=== PATIENT | male | born 1960 | race Caucasian/White ===

== ENCOUNTER → 2018-01-12 | Outpatient (CLI) | payer OTHER ==
[2018-01-11 16:12] VITALS: BMI 32.5
[2018-01-12 14:43] VITALS: BP 160/96; PULSE 65; RESP 18
--- NOTE | 2018-01-13 09:17 | P.PAINCN ---
History of Present Illness - Reason for Consult Consult date: 01/12/18 - History of Present Illness This is initial consultation visit for this 57 years old male with a chronic history of severe low back pain, pain started 6 years ago after he fell off the horse, and from that time he started complaining of severe low back pain, the pain is constant, radiated to the right buttock area, the posterior aspect of his right leg, he denies any motor or sensory deficit, and he reported that he had interventional pain management procedures done at different institution and he gets excellent pain relief, and currently his pain management physician retired and is planning to move his care to [facility], patient reported that the intensity of the pain is 6/10 and increases with any activity to 10 over 10, he continued to work , and he does a lot of physical activity, he denies any fever or night sweats. Denies any change in the bowel movement or urination. Past Medical History Past Medical History: Atrial Fibrillation, Asthma, Diabetes Mellitus, Hyperlipidemia, Hypertension, Liver Disease, Musculoskeletal Disorder, Osteoarthritis (OA) Additional Past Medical History / Comment(s): hx. Hep. C-previous tx-currently in remission, low back pain-has gone to pain clinic in [place] prior, past hx. a -fib-not currently, restless leg History of Any Multi-Drug Resistant Organisms: None Reported Past Surgical History: Appendectomy Additional Past Surgical History / Comment(s): pain procedures, varicose vein surgery Past Anesthesia/Blood Transfusion Reactions: No Reported Reaction Past Psychological History: Depression Smoking Status: Former smoker Additional Past Alcohol Use History / Comment(s): quit smoking 10 yrs ago, smoked cigars 5 yrs., recovering alcoholic-hasn't drank in 30 yrs. Past Drug Use History: None Reported - Past Family History Mother Family Medical History: No Reported History Medications and Allergies Home Medications Medication Instructions Recorded Confirmed Type ARIPiprazole [Abilify] 2 mg PO DAILY 01/11/18 01/12/18 History Albiglutide [Tanzeum] 30 mg SQ Q7D 01/11/18 01/12/18 History Albuterol Inhaler [Ventolin Hfa 1 - 2 puff INHALATION RT-Q6H PRN 01/11/18 History Inhaler] Atorvastatin [Lipitor] 40 mg PO DAILY 01/11/18 01/12/18 History FLUoxetine HCL [PROzac] 40 mg PO DAILY 01/11/18 01/12/18 History Glimepiride [Amaryl] 2 mg PO AC-BRKFST 01/11/18 01/12/18 History Losartan Potassium [Cozaar] 100 mg PO DAILY 01/11/18 01/12/18 History Naproxen [Naprosyn] 500 mg PO Q12HR PRN 01/11/18 01/12/18 History Pregabalin [Lyrica] 75 mg PO BID 01/11/18 01/12/18 History metFORMIN HCL 1,000 mg PO DAILY 01/11/18 01/12/18 History rOPINIRole HCL [Requip] 1 mg PO HS 01/11/18 01/12/18 History Allergies Allergy/AdvReac Type Severity Reaction Status Date / Time No Known Allergies Allergy Verified 01/12/18 14:22 Physical Exam Vitals: Vital Signs Pulse Resp BP Pulse Ox 01/12/18 14:25 65 18 160/96 97 Social history : not smoker , NO ETOH , NO Illegal drugs use . Review of Systems : 1- Constitutional : no chills , no fever , no night sweats , 2- Ears : no ear discharge , no change in hearing 3-Nose, Mouth ,Throat ; no bleeding gums, no sore throat , no epistaxis , 4-Cardiovascular : Denies chest pain, , no orthopnea , no palpitation 5-Respiratory : Denies cough , no dyspnea , no hemoptysis 6-Gastrointestinal :, no change in bowel habits , no coffee- ground emesis . 7-Genitourinary : No hematuria , no discharge , no incontinence, 8-Musculoskeletal : No gait dysfunction , report low back pain , 9- Neurological : no ataxia , no tremor , no sezure , 10-Psychatric , no suicidal ideation no hallucination 11- Endocrine : no cold intolerence , no polyuria , no polydypsia , 12-Hematologic : no easy bleeding , no easy brusing , 13-Allergic / immunology : no angioedema , no wheezing ,no allergic rhinitis 14-Integumentary : no brttle nails , no change hair / nails , no foot/leg ulcers . Physical Examinations : 1-Constitutional : Cooperative , not in acute distress . 2-HEENT : nech ; supple , no Lymphadenopathy , no Thyromegaly , :eyes , no icterus, no photophobia . ENT : , normal oropharynx , no Thrush 3- Respiratory : Chest clear to auscultations Bilaterally , no wheezing . 4- Cardiovascular : regular rate and rhythem , S1 , S2 , no S3 , no S4. 5- Gastrointestinal: abdomen soft no tenderness , no organomegally . 6- Genitourinary : Defferred . 7-Integumentary : No cellulitis , no ulcers , normal skin turgor , no cyanotic . 8- neurologic : Cranial nerve II to XII intact , no focal neurological deffecit 9-psychatric : alert , oriented X 3 , appropriate affect , intact judgment and insight . 10-Lymphatic : no Lymphadenopathy. 11- musculoskeltal: normal gait Lumber spine moter stegnth lower extremities ,thigh and legs 5/5 Right side , 5/5 Left side deep tendon reflexes : normal Knee Jerk , normal ankle Jerk lumber facet Loading Test positive only on the right side, negative on the left side Range of motion of the lumbar spine Flexion 30 degrees, extension 10 degrees strait leg raising test , positive at 30 degree on the right side, negative on the left side Fabere test positive RT and negative LT . Results Comments: MRI of the lumbar spine= done at some point MRI 11/28/2017, L4 5/L5-S1 lumbar facet arthropathy Assessment and Plan Plan: Assessment and plan=1-chronic severe low back pain secondary to lumbar spondylosis with lumbar facet arthropathy. Patient could benefit from Lyrica 25 mg twice a day increased gradually to 3 times a day, and he could benefit from naproxen 500 mg twice a day Patient will be good candidate to have diagnostic medial branch block lumbar area right side at L3-4 , L4 5, and L5-S1 redo it twice and benefits possible proceed with the radiofrequency ablation Time with Patient: Greater than 30 PQRS Measure Charge Sheet Measure #130: Documentation of Current Meds in Medical Chart: Patient's medications documented in chart Measure #226: Tobacco Use: Screen & Cessation Intervention: Pt not a tobacco user Measure #111: Pneumonia Vaccination: Pneumococcal vaccine NOT administered or previously given Measure #47: Advance Care Plan: Advance care planning discussed & documented, pt chose/unable to give Measure #412: Opioid Treatment Agreement: No documentation of signed opioid treatment agreement Measure #408: Opioid Therapy Follow-up Evaluation: Patient had NO f/u eval minimum every 3 months during opioid therapy Measure #317: Preventitive Care & Scrn High Bld Press & F/U: Pre-hypertensive or hypertensive BP documented, pt will f/u with PCP Measure #128: Body Mass Index (BMI) Screening & Follow-up: BMI documented ABOVE normal parameters - f/u documented Measure #131: Pain Assessment & Follow-up: Pain positive & plan documented, Follow-up scheduled Measure #431: Unhealthy Alcohol Use Preventative Care & Scrn: Patient not identified as an unhealthy alcohol user PQRS Narrative: Smoking Status Former smoker Do You Want the Pneumonia No Vaccine AT THIS TIME? Blood Pressure 160/96 Pain Intensity [Bilateral 8 Lower Back] Hx Alcohol Use (MH) No Home Medications: Ambulatory Orders ARIPiprazole [Abilify] 2 mg PO DAILY 01/11/18 Albiglutide [Tanzeum] 30 mg SQ Q7D 01/11/18 Albuterol Inhaler [Ventolin Hfa Inhaler] 1 - 2 puff INHALATION RT-Q6H PRN Atorvastatin [Lipitor] 40 mg PO DAILY 01/11/18 FLUoxetine HCL [PROzac] 40 mg PO DAILY 01/11/18 Glimepiride [Amaryl] 2 mg PO AC-BRKFST 01/11/18 Losartan Potassium [Cozaar] 100 mg PO DAILY 01/11/18 Naproxen [Naprosyn] 500 mg PO Q12HR PRN 01/11/18 Pregabalin [Lyrica] 75 mg PO BID 01/11/18 metFORMIN HCL 1,000 mg PO DAILY 01/11/18 rOPINIRole HCL [Requip] 1 mg PO HS 01/11/18
== END ==
LOC: PNWHC3 13:49
PROVIDERS: ATTEND Specialist
DX: G89.29 Other chronic pain (principal); M47.816 Spondylosis without myelopathy or radiculopathy, lumbar region; M46.96 Unspecified inflammatory spondylopathy, lumbar region; Z87.891 Personal history of nicotine dependence; Z79.899 Other long term (current) drug therapy; Z79.84 Long term (current) use of oral hypoglycemic drugs
CPT/HCPCS: 99211

== ENCOUNTER → 2018-02-03 | Day surgery (SDC) | payer OTHER ==
[2018-01-28 15:43] VITALS: BMI 32.7
[~2018-02-03] MED LIST: SODIUM CHLORIDE 0.9% 500 ML 500 ML IV ONE; SODIUM CHLORIDE 0.9% 500 ML 500 ML IV SCH
[2018-02-03 09:57] VITALS: BP 126/66; PULSE 65; RESP 16; TEMP 97.9
[2018-02-03 10:18] LABS: Glucose,Whole Blood 96 mg/dL (75-99)
--- NOTE | 2018-02-03 10:31 | P.PCN ---
Date of Procedure: 02/03/18 Surgeon: Dominguez Eric Pathology: none sent Condition: stable Disposition: PACU Description of Procedure: PREOPERATIVE DIAGNOSIS : 1- Lumbar spondylosis with Facet Arthropathy without myelopathy . 2- Lumber degenerative disc disease POSTOPERATIVE DIAGNOSIS: 1- Lumbar spondylosis with Facet Arthropathy without myelopathy . 2- Lumber degenerative disc disease PROCEDURE: Diagnostic Right L3 -4 , L4 -5 , and L5-S1 medial branch block under fluoroscopy ANESTHESIA: Local with 1% lidocaine; IV moderate conscious sedation with Versed 2 mg, and fentanyl 100 g . EBL: Negligible COMPLICATION: None. PROCEDURE INDICATION: Chronic low back pain secondary to Facet arthropathy unresponsive to conservative treatment. PROCEDURE DESCRIPTION: the patient was seen and identified in the preop holding area , risks and benefits and possible complications of the procedure and alternatives were discussed with the patient, and the patient agreed to proceed with the procedure and signed the consent. IV was started and vital signs monitored during the procedure and fluoroscopy was used to maximize the benefit and accuracy of the needle placement, sedation was given to decrease patient anxiety, patient was taken to the procedure room and placed in prone position vital signs monitored. The patient was brought into the procedure room and placed in prone position. Skin was prepped with Chloraprep and draped in a sterile manner. Lidocaine 1 % was used to numb the skin up at the target points that were chosen as follows : at the L5-S1 level which corresponds to the dorsal ramus of L5 the target points were at the superior medial aspect of the sacral ala on the right side of the spine on the AP view of fluoroscopy, and for the L3 and L4 medial branches the target points were the connection between the transverse process and the superior to go process of L4 and L5 respectively on the right oblique view of fluoroscopy. I used 22-gauge 3-1/2 inch Quincke spinal needles for this procedure and after contacting bone at the target points mentioned above I injected 1 mL of a mixture of Kenalog 40 mg +5 MLS of Marcaine 0.5% PF . The patient was moving during this procedure and he did not like the level of sedation he received, he asks for a deeper level of sedation. I then gave him 100 g of fentanyl IV. At the end of the procedure the needles removed and a bandage applied after the skin was cleaned the cleaning solution. patient was then taken to the recovery room in stable condition and monitored in the recovery and discharged home in stable condition after discharge criteria met .
--- NOTE | 2018-02-03 10:43 | FL ---
EXAMINATION TYPE: FL guided pain mgmt statistic DATE OF EXAM: 02/03/2018 HISTORY: Flouroscopy time 7 seconds of fluoroscopy provided. IMPRESSION: 1. Fluoroscopy time.
== END | disposition home or self-care (01) ==
LOC: ORPAIN 08:52
PROVIDERS: ATTEND Anesthesiology
DX: M47.816 Spondylosis without myelopathy or radiculopathy, lumbar region (principal); G89.29 Other chronic pain; M51.36 Other intervertebral disc degeneration, lumbar region; I10 Essential (primary) hypertension; E11.9 Type 2 diabetes mellitus without complications
CPT/HCPCS: 64493; 64494; 64495; J2250; J3301; J3010; 99152

== ENCOUNTER → 2018-03-16 | Outpatient (CLI) | payer OTHER ==
[2018-03-16 13:30] VITALS: BP 148/89; PULSE 64; RESP 16
--- NOTE | 2018-03-16 13:52 | P.PN ---
Subjective Progress Note Date: 03/16/18 This is a 57-year-old gentleman with right lower back pain with radiation to the right knee. The patient had very good pain relief after the last diagnostic medial branch block. He felt the pain relief immediately after the procedure. Today, pt denies new-onset weakness, bowel/bladder incontinence, or any other signs or symptoms of cauda equina syndrome. There are no signs of acute intoxication, and no indications of medication diversion or overuse. In addition to above, 13-point review of systems is also negative for chest pain , shortness of breath, changes in vision, changes in hearing, new onset weakness , abdominal pain, diarrhea, extreme fatigue, malaise, fever, skin changes, homicidal or suicidal ideation, or bowel or bladder incontinence. Vital Signs: Reviewed in EMR Gen: AAOx3, NAD HEENT: PERRLA,hearing grossly normal Pulm: resp unlabored,CTA Heart:S1,S2, No Mur Neck: supple, trachea midline Tenderness in the paravertebral musculature: Positive on the right side Neuro: CN II-XII grossly intact, Imaging: Reviewed in EMR/chart Assessment: Lumbar spondylosis without myelopathy Plan: 1. Explanation: Opioid and psychological risk scores were reviewed. Diagnoses , prognoses, and multiple treatment options including but not limited to physical therapy, interventional therapies, adjuvant medical therapies, narcotic medication therapies, and surgery were discussed with the patient and all questions were answered to the patient's satisfaction. 2. Opioid agreement: Signed with the patient and the patient is warned not to use opioids while driving or before driving and not to combine opioids with benzodiazepines or alcohol. 3. Counseling: The patient was counseled extensively on SMOKING CESSATION, BODY MASS INDEX, EXERCISE. Specifically, the patient was instructed regarding the importance of smoking cessation, obesity, and exercise in the context of both chronic pain and overall health. 4. Procedures: Scheduled for right lumbar medial branch RFA under fluoroscopic guidance for levels L3 4, L4-L5, and L5-S1 5. Consultations: None 6. Investigations: None 7. Medications: None 8. Disposition: Return to the above-mentioned procedure 9. Maps were reviewed and were appropriate. PQRS measures: 1-Patient's medications are documented in the chart. 2-Tobacco use is positive, counseling given 3-Patient has not had a pneumococcal vaccine. 4-Advanced care planning discussed, patient unable to give 5-Opioid contract not signed with the patient. No opioids are prescribed 6-Pain positive, follow-up visit or procedure scheduled 7-Patient's blood pressure measured and documented mildly above normal limits. Patient to follow up with his primary care physician. 8-Patient's weight was measured, and body mass index ABOVE the normal limits, and counseling was done. Patient instructed to follow up with PCP. 9-Patient WAS NOT identified as an unhealthy alcohol user. Objective - Vital Signs Vital signs: Vital Signs Temp Pulse 64 03/16/18 13:25 Resp 16 03/16/18 13:25 BP 148/89 03/16/18 13:25 Pulse Ox 98 03/16/18 13:25 Intake & Output 03/15/18 03/16/18 03/16/18 18:59 06:59 18:59 Weight 106.594 kg
== END | disposition home or self-care (01) ==
LOC: PNWHC3 12:50
PROVIDERS: ATTEND Anesthesiology
DX: M47.816 Spondylosis without myelopathy or radiculopathy, lumbar region (principal)
CPT/HCPCS: 99211

== ENCOUNTER 2018-04-21 08:45 | Day surgery (SDC) | payer OTHER ==
[2018-04-19 15:04] VITALS: BMI 32.3
[~2018-04-21 08:45] MED LIST changes: -SODIUM CHLORIDE 0.9% 500 ML 500 ML IV ONE
[2018-04-21 09:42] VITALS: RESP 16; TEMP 97.3
[2018-04-21] MEDS ORDERED: LACTATED RINGERS 1,000 ML IV ONE (09:56)
[2018-04-21] MEDS ORDERED: LIDOCAINE 1% 20 ML VIAL (10MG/ML) FOR IV START INTRADERMA ONE (09:57)
[2018-04-21 09:59] LABS: Glucose,Whole Blood 88 mg/dL (75-99)
[2018-04-21] MEDS ORDERED: IV FLUID CONTINUATION 1,000 ML IV ONE (10:56)
--- NOTE | 2018-04-21 10:56 | P.PCN ---
Date of Procedure: 04/21/18 Description of Procedure: OPERATION: Radiofrequency ablation of the medial branch lumbar area at [right] side L3-4, L4-5 and L5-S1 levels under fluoroscopic guidance. PREOPERATIVE DIAGNOSES: 1. Lumbar facet arthropathy. 2. Lumbar degenerative disc disease. POSTOPERATIVE DIAGNOSES: 1. Lumbar facet arthropathy. 2. Lumbar degenerative disc disease. COMPLICATIONS: None. ANESTHESIA: IV sedation with local infiltration with Versed 4 mg and fentanyl 100 g CONDITION: Stable. INDICATION FOR THE PROCEDURE: This is [57]-year-old [lumbar facet arthropathy and spondylosis] with a history of low back pain. Patient had 2 diagnostic medial branch blocks with greater than 80% relief and decided to proceed with radiofrequency ablation. Patient taken to the operating room, placed in prone position. All standard monitors applied to the patient. Then after induction of anesthesia, back prepped with Betadine 3 times. Then under fluoroscopic guidance we used 1% lidocaine 8 mL for skin and subcutaneous tissue infiltrations, approximately 2 mL at each level. Then after that, 18-gauge radiofrequency active-tip needles, 4 needles used, each one of them placed at the junction of the base of the transverse process and the superior articulating process of the right side at L3 -4, L4-5 and L5-S1 levels. Needle placement confirmed with AP and oblique and lateral views. Then after appropriate needle placement confirmed, we checked for the motor stimulation at 2.5 v, which was positive for localized contractions in the lumbar area and there were no contractions in the lower extremities. Then after that, we checked for the sensory stimulation, which was positive at all levels at less than 0.5 v. Then after that, the radiofrequency done at 80 degrees Centigrade for 90 seconds at each level. Then before the needles taken out, 0.5% Marcaine 6 mL and 40 mg of Kenalog mixed together and 1.0mL injected at each level after negative aspiration. Patient tolerated the procedure well without any complication and will follow up with the pain clinic in few weeks.
[2018-04-21 11:15] VITALS: BP 131/81; PULSE 67
--- NOTE | 2018-04-21 13:54 | FL ---
Fluoroscopy HISTORY: Pain 26 seconds fluoroscopy time supplied to the referring clinician. 4 intraoperative C-arm images docum ent the procedure. See dictated report from anesthesia.
--- NOTE | 2018-04-27 05:24 | CDI ---
Date: 04/27/18 CDS/[employer] Name: Negrita Garcia Phone: If any questions, call Divya Conway [employer] at [phone] Patient Name: Satya Mata Admit Date: 04/21/18 Discharge Date: 04/21/18 ATTENTION: The [facility] Coding Staff appreciate your assistance in clarifying documentation. Please respond to the clarification below the line at the bottom and electronically sign. The [facility] Coding staff will review the response and follow-up if needed. Please note: Queries are made part of the Legal Health Record. If you have any questions, please contact the [employer]. Dear Dr. Ramon, Please provide clarification as to the type of sedation provided. Operative report, under anesthesia, states IV sedation with local infiltration with versed and fentanyl were provided. On the Pain Procedure Record under Anesthesia Plan, nothing is checked. Please clarify if MAC/unconscious sedation or Moderate/conscious sedation was provided. Thank you for your kind consideration. MTDD
== END 2018-04-21 11:29 | disposition home or self-care (01) ==
LOC: ORPAIN 08:45
PROVIDERS: ATTEND Anesthesiology
DX: M51.36 Other intervertebral disc degeneration, lumbar region (principal); M46.96 Unspecified inflammatory spondylopathy, lumbar region
CPT/HCPCS: 64635; 64636 ×2; J2250; J3301; J2001; J3010; 99152